=== PATIENT | male | born 1940 | race Hispanic/Latino ===

== ENCOUNTER 2016-08-01 07:16 | Day surgery (SDC) | payer MEDICARE ==
[2016-07-28 07:48] VITALS: BMI 25.7
[2016-08-01] MEDS ORDERED: Simethicone 40 mg/0.6 ml Liquid (30 ml) ONE (07:51)
[2016-08-01] MEDS ORDERED: Etomidate 20 mg/10ml Inj IV ONE (08:09)
[2016-08-01] MEDS ORDERED: Lidocaine 2% Inj (20ml) ONE (08:09)
[2016-08-01] MEDS ORDERED: Propofol 10 mg/ml Inj (20 ML) ONE (08:09)
[2016-08-01] MEDS ORDERED: ePHEDrine 50 mg/ml Inj ONE (08:54)
[2016-08-01] MEDS ORDERED: Sodium Chloride 0.9% 1,000 ML IV SCH (09:15)
[2016-08-01 09:49] VITALS: BP 109/48; PULSE 53; RESP 20; TEMP 97.4; O2SAT 96
== END 2016-08-01 10:52 | disposition home or self-care (01) ==
LOC: ENDO 07:16
PROVIDERS: ATTEND Internal Medicine Gastroenterology
DX: K29.50 Unspecified chronic gastritis without bleeding (principal); K57.30 Diverticulosis of large intestine without perforation or abscess without bleeding; K64.8 Other hemorrhoids; K44.9 Diaphragmatic hernia without obstruction or gangrene; K57.10 Diverticulosis of small intestine without perforation or abscess without bleeding; K29.80 Duodenitis without bleeding
CPT/HCPCS: 43239; 45385; 82948; 88305; 88312; 88342; J2704; J3010; J7040 ×2